=== PATIENT | male | born 1995 | race Caucasian/White ===

== ENCOUNTER 2020-07-03 17:36 | Emergency (ER) | payer SELFPAY ==
[~2020-07-03] VITALS: Ht 170.2 cm; Wt 73.0 kg
[2020-07-03 17:42] VITALS: Ht 170.2 cm; Wt 73.0 kg
[2020-07-03 20:04] VITALS: BP 120/60
== END 2020-07-03 20:05 | disposition home or self-care (01) ==
LOC: ED 17:36
DX: S43.015A Anterior dislocation of left humerus, initial encounter (principal); X58.XXXA Exposure to other specified factors, initial encounter; Y93.89 Activity, other specified; Y92.89 Other specified places as the place of occurrence of the external cause; Y99.8 Other external cause status
CPT/HCPCS: J2250; J2270; J2405; Q0092